=== PATIENT | female | born 1995 | race Caucasian/White ===

== ENCOUNTER 2017-07-30 09:45 | Outpatient (CLI) | payer OTHER ==
--- NOTE | 2017-07-30 11:51 | ULT ---
OBSTETRICAL ULTRASOUND: Date: 07-30-17 Comparison: None. History: 21-year-old female undergoing anatomic survey. Technique: Multiplanar grayscale sonographic imaging of the gravid uterus obtained. FINDINGS: The cervix measures approximately 4 cm in length. A single intrauterine gestation is present demonstr ating a heart rate of 145 beats/minute. The placenta is noted anteriorly with no evidence for p revia or abruption. presentation is breech. The umbilical cord insertion, nose, and lips, spine, stomach, urinary bladder , umbilical cord, intracranial contents, kidneys, appear unremarkable. The four-chamber h eart view is nonvisualized on this examination secondary to positioning. Amniotic fluid index is approximately 12.2 cm. biometry: BPD 4.5 cm 19 weeks 4 days HC 17.5 cm 20 weeks 0 days AC 14.9 cm 20 weeks 1 days FL 3.2 cm 20 weeks 0 days Average age based on ultrasound is 19 weeks 6 days. Estimated date of delivery is 12-18-17. Estimated weight is 332 grams +/- 49 grams. IMPRESSION: Single intrauterine gestation as detailed above. Imaged anatomy appears unremarkable. The four chamber heart view could not be visualized and dedicated follow up imaging suggested. POS: JOSELYN
== END 2017-07-30 09:46 | disposition home or self-care (01) ==
LOC: ULT 09:45
PROVIDERS: ATTEND Family Medicine
DX: Z33.1 Pregnant state, incidental (principal)
CPT/HCPCS: 76805

== ENCOUNTER → 2017-11-21 | Day surgery (SDC) | payer OTHER ==
[2017-11-21 10:27] VITALS: BP 109/71; TEMP 98.3; BMI 26.6
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
== END ==
LOC: ERS 09:04 → L&D/OP 09:04 → EDSTATUS 09:21
PROVIDERS: ATTEND Family Medicine
DX: O9A.213 Injury, poisoning and certain other consequences of external causes complicating pregnancy, third trimester (principal); O99.343 Other mental disorders complicating pregnancy, third trimester; F90.9 Attention-deficit hyperactivity disorder, unspecified type; F60.9 Personality disorder, unspecified; Z3A.36 36 weeks gestation of pregnancy; Z79.2 Long term (current) use of antibiotics; Z79.899 Other long term (current) drug therapy; V49.40XA Driver injured in collision with unspecified motor vehicles in traffic accident, initial encounter

== ENCOUNTER 2017-12-10 06:24 | Inpatient (IN) | payer OTHER ==
[2017-12-10 07:00] VITALS: BMI 27.1
[2017-12-10] MEDS ORDERED: Misoprostol 200 MCG TAB PR PRN (08:25)
[2017-12-10] MEDS ORDERED: HYDROcodone/Acetaminophen 5/325 mg Tablet PO PRN ×2 (08:25)
[2017-12-10] MEDS ORDERED: LR / Pitocin 40 units/1000 ml 1,000 ML IV PRN (08:25)
[2017-12-10] MEDS ORDERED: Methylergonovine 0.2 MG/ML VIAL IM PRN (08:25)
[2017-12-10] MEDS ORDERED: Ondansetron PF 4 MG/2 ML Vial IVP PRN ×2 (08:25→16:26)
[2017-12-10] MEDS ORDERED: Promethazine HCl 25 MG/ML VIAL IM PRN (08:25)
[2017-12-10] MEDS ORDERED: Lidocaine 1% (PF) 30 ML VIAL SC PRN (08:25)
[2017-12-10] MEDS ORDERED: Diphenoxylate HCl/Atropine Tablet PO PRN ×2 (08:25)
[2017-12-10] MEDS ORDERED: Carboprost 250 MCG/ML AMP IM PRN (08:25)
[2017-12-10] MEDS ORDERED: Ibuprofen 800 MG TAB PO PRN (08:25)
[2017-12-10] MEDS ORDERED: Acetaminophen 500 MG TAB PO PRN (08:25)
[2017-12-10] MEDS ORDERED: LR 500 ML/Oxytocin 10 units 500 ML IV SCH (08:30)
[2017-12-10] MEDS ORDERED: Labetalol HCl 100 MG/20 ML VIAL SLOW IVP SCH (08:30)
[2017-12-10] MEDS: Lactated Ringer's 1,000 ML IV SCH ×3 (08:50→12:53)
[2017-12-10] MEDS ORDERED: DISCONTINUE ALL PREVIOUS NARCOTICS FS SCH (09:15)
[2017-12-10] MEDS ORDERED: Bupivacaine 0.5% 20 ML, fentaNYL Citrate/PF 400 MCG in Sodium Chloride 0.9% 72 ML EPIDURAL SCH (09:15)
[2017-12-10 09:33] LABS: #Eosinphils 0.3 thou/uL (0.0-0.7); #Lymphocytes 1.8 thou/uL (1.20-3.40); #Monocytes 0.7 thou/uL (0.11-0.59); #Neutrophils 8.5 thou/uL (1.40-6.50); %Basophils 0.4 % (0.0-1.0); %Eosinophils 2.3 % (0.0-10.0); %Lymphocytes 15.8 % (21.0-51.0); %Monocytes 6.1 % (0.0-10.0); %Neutrophils 75.4 % (42.0-75.0); Hemoglobin 14.6 g/dL (12.0-16.0); Mean Corpuscular HGB CONC 35.8 g/dL (32.0-36.0); Mean Corpuscular Volume 94.9 fl (81.0-99.0); Mean Platelet Volume 6.1 fL (7.4-10.4); Platelet Count 247 thou/uL (130-400); RBC Distribution Width 12.1 % (11.5-14.5); Red Blood Cell (RBC) Count 4.31 mill/uL (4.20-5.40); White Blood Cell (WBC) Count 11.2 thou/uL (4.8-10.8)
[2017-12-10 09:45] LABS: ALT (SGPT) 23 U/L (8-55); AST (SGOT) 21 U/L (5-34); Albumin 3.8 g/dL (3.5-5.0); Alkaline Phosphatase 178 U/L (40-150); Anion Gap 14 mmol/L (10-20); BUN (Urea Nitrogen) 12 mg/dL (7.0-18.7); Bilirubin, Total 0.4 mg/dL (0.2-1.2); Calc. Creatinine Clearance 148 mL/min (70-130); Calcium 9.5 mg/dL (7.8-10.44); Carbon Dioxide 22 mmol/L (22-29); Chloride 105 mmol/L (98-107); Estimated GFR-MDRD Greater than 90; Glucose 76 mg/dL (70-105); Potassium 4.2 mmol/L (3.5-5.1); Protein, Total 6.8 g/dL (6.0-8.3); Sodium 137 mmol/L (136-145)
[2017-12-10 10:03] LABS: Syphilis Antibody Nonreactive (Nonreactive); Syphilis Antibody Index 0.07 S/CO (<1.00 Non-Reactive)
[2017-12-10] MEDS ORDERED: Acetaminophen 325 MG TAB PO PRN (10:12)
[2017-12-10] MEDS ORDERED: Naloxone HCl 0.4 mg/ml Vial IVP PRN ×2 (10:12)
[2017-12-10] MEDS ORDERED: ePHEDrine/0.9% NaCl/PF SYRINGE 50 mg/10 ml SLOW IVP PRN (10:12)
[2017-12-10] MEDS ORDERED: Eucerin (Mineral Oil/Petrolatum,White) 30 gm Jar TOP PRN (10:12)
[2017-12-10] MEDS ORDERED: Lactated Ringer's 500 ML IV PRN (10:12)
[2017-12-10] MEDS ORDERED: Communication Order-Pharmacy FS SCH (10:15)
[2017-12-10] MEDS ORDERED: Fentanyl 4mcg/Marcaine 0.1% Cassette 100 ML EPIDURAL SCH (10:15)
[2017-12-10] MEDS ORDERED: Bupivacaine/Epinephrine 0.25% 30 ML VIAL ONE (11:11)
[2017-12-10] MEDS ORDERED: ePHEDrine/0.9% NaCl/PF SYRINGE 50 mg/10 ml ONE (11:11)
[2017-12-10] MEDS ORDERED: Bupivacaine 0.25% HCL 30 ML VIAL ONE (11:11)
[2017-12-10 11:29] LABS: Creatinine, Urine 83.51 mg/dL (47-110)
[2017-12-10 11:51] LABS: Amphetamine Not Detected (NotDetected); Barbiturates Screen Not Detected (NotDetected); Benzodiazepine Screen Not Detected (NotDetected); Cocaine Metabolite Screen Not Detected (NotDetected); Medtox Control Line Valid? VALID (VALID); Medtox Reader # READER 1; Methadone Not Detected (NotDetected); Methamphetamine Detected (NotDetected); Opiate Screen Not Detected (NotDetected); Oxycodone Screen Not Detected (NotDetected); Phencyclidine (PCP) Not Detected (NotDetected); THC/Cannabinoid Screen Not Detected (NotDetected); Tricyclic Screen Not Detected (NotDetected)
[2017-12-10 12:56] LABS: HBSAg Index 0.13 S/CO (0-0.99); Hep B Surf Ag Non-Reactive S/CO (NonReactive)
[2017-12-10] MEDS ORDERED: Bisacodyl 10 MG SUPP PR PRN (16:26)
[2017-12-10] MEDS ORDERED: diphenhydrAMINE 25 MG CAP PO PRN (16:26)
[2017-12-10] MEDS ORDERED: Lanolin Ointment 7 GM TUBE TOP PRN (16:26)
[2017-12-10] MEDS ORDERED: traMADol HCl 50 MG TAB PO PRN (16:26)
[2017-12-10] MEDS ORDERED: Milk Of Magnesia 30 ML UDCUP PO PRN (16:26)
[2017-12-10] MEDS ORDERED: LR / Pitocin 40 units/1000 ml 1,000 ML IV SCH (16:26)
[2017-12-10] MEDS ORDERED: Benzocaine/Menthol 20-0.5% 60 ML CAN TOP PRN (16:26)
[2017-12-10] MEDS ORDERED: Preparation H Ointment 28 GM TUBE PR PRN (16:26)
[2017-12-10] MEDS: Ibuprofen 800 MG TAB PO SCH (22:25)
[2017-12-10] MEDS: Docusate Calcium (SURFAK) 240 MG CAP PO SCH (22:25)
[2017-12-11] MEDS: Ferrous Sulfate 325 MG TAB PO SCH ×3 (01:17→17:40)
[2017-12-11] MEDS: Ibuprofen 800 MG TAB PO SCH ×3 (05:55→20:59)
[2017-12-11] MEDS: Prenatal Vitamin 1 TAB PO SCH (09:47)
[2017-12-11] MEDS: Docusate Calcium (SURFAK) 240 MG CAP PO SCH ×2 (09:47→20:59)
[2017-12-12] MEDS: Ibuprofen 800 MG TAB PO SCH (05:40)
[2017-12-12 07:56] VITALS: BP 122/76; TEMP 97.9
[2017-12-12] MEDS: Prenatal Vitamin 1 TAB PO SCH (09:27)
[2017-12-12] MEDS: Docusate Calcium (SURFAK) 240 MG CAP PO SCH (09:27)
[2017-12-12] MEDS: Ferrous Sulfate 325 MG TAB PO SCH (09:27)
== END 2017-12-12 10:15 | disposition home or self-care (01) | DRG 774 ==
LOC: L&D/OP 06:24 → L&D 09:21 → 3SW 18:33
PROVIDERS: ADMIT Family Medicine; ATTEND Family Medicine
PROC: 10E0XZZ Delivery of Products of Conception, External Approach (ICD-10-PCS; principal; 2017-12-10)
PROC: 0HQ9XZZ Repair Perineum Skin, External Approach (ICD-10-PCS; 2017-12-10)
DX: O98.52 Other viral diseases complicating childbirth (principal); B00.9 Herpesviral infection, unspecified; Z37.0 Single live birth; Z3A.39 39 weeks gestation of pregnancy; O70.0 First degree perineal laceration during delivery
CPT/HCPCS: 51702; 80053; 80306; 82570; 84156; 85025; 86780; 87340; 99285; J2001; J2210; J3010; J3490; J7050; J7120; S0020

== ENCOUNTER 2019-02-04 10:01 | Outpatient (CLI) | payer OTHER ==
--- NOTE | 2019-02-04 11:36 | ULT ---
PELVIC ULTRASOUND WITH GRAYSCALE AND DOPPLER COLORFLOW: INDICATIONS: Amenorrhea. Left-sided pelvic pain. TECHNIQUE: Transabdominal imaging performed. FINDINGS: There is presumed physiologic thickening of the endometrium, given the patient's age, measuring 11 mm . Bilateral complex ovarian cysts are present, which may relate to hemorrhagic follicles, measuring 2.9 cm on the left and 2.9 cm on the right. By Doppler assessment, no internal flow of significance is demonstrated within the complex right ovarian cyst. There is flow approximating the periphery of the left adnexal cyst, which may relate to flow within the immediately adjacent ovarian stroma. Ther e is no significant free pelvic fluid. IMPRESSION: 1. Bilateral complex appearing cysts of each ovary, slightly less than 3 cm in size. Recommend a si x-week follow-up pelvic ultrasound to confirm expected resolution of physiologic, hemorrhagic follicl es. 2. Presumed mild physiologic prominence of the endometrium. CODE T POS: DANAY
== END 2019-02-04 10:02 | disposition home or self-care (01) ==
LOC: ULT 10:01
PROVIDERS: ATTEND Physician Assistant
DX: N91.2 Amenorrhea, unspecified (principal); N83.202 Unspecified ovarian cyst, left side; N83.201 Unspecified ovarian cyst, right side
CPT/HCPCS: 76856; 93976

== ENCOUNTER 2021-09-18 15:15 | Outpatient (CLI) | payer OTHER | END 2021-09-18 15:16 | disposition home or self-care (01) | LOC: BICULT 15:15 | PROVIDERS: ATTEND Family Medicine | DX: Z87.42 Personal history of other diseases of the female genital tract (principal) | CPT/HCPCS: 76856; 93976 ==

== ENCOUNTER 2023-02-06 15:34 | Outpatient (CLI) | payer BC, OTHER | END 2023-02-06 15:35 | disposition home or self-care (01) | LOC: ULT 15:34 | PROVIDERS: ATTEND Urology | DX: N13.30 Unspecified hydronephrosis (principal); N28.89 Other specified disorders of kidney and ureter | CPT/HCPCS: 76770 ==